=== PATIENT | female | born 1975 | race Caucasian/White ===

== ENCOUNTER → 2016-06-22 | Outpatient (CLI) | payer BC ==
[~2016-06-22] VITALS: Ht 160 cm; Wt 81.3 kg
[~2016-06-22] MED LIST: CLBCRM30 EXT; CYPR4TAB31 PO; IBUP-1050 PO; MTR600X PO; ONDA8TAB6 PO; OXYC-57 PO; RANI300T2 PO; SUMA100T16 PO; SUMATRIPTAN; TRMO2580 TOP
[2016-06-22 13:58] VITALS: Ht 160 cm; Wt 81.3 kg
--- NOTE | 2016-06-22 14:40 | PAT Medication Instructions ---
Service Date Jun 22, 2016. Current Home Medication List Clobetasol Propionate (Clobetasol Propionate Cream 0.05%), 1 APPLN EXT BID PRN for ECZEMA Cyproheptadine Hcl (Periactin), 4 MG PO TID Ibuprofen (Advil), 400 MG PO PRN PRN for Pain Ranitidine Hcl (Zantac), 300 MG PO HS PRN for ACID REFLUX Sumatriptan Succinate (Imitrex), 100 MG PO PRN PRN for HEADACHE Triamcinolone Acetonide (Topic (Triamcinolone Acet 0.025%), 1 APPLN TOP BID PRN for EXCZEMA [Sumatriptan [place] ] Medication Instructions For Your Scheduled Surgery - Hold the following medications 24 hours prior to surgery: Triamcinolone Acetonide (Topic (Triamcinolone Acet 0.025%), 1 APPLN TOP BID PRN for ECZEMA Clobetasol Propionate (Clobetasol Propionate Cream 0.05%), 1 APPLN EXT BID PRN for ECZEMA - Hold the following medications the morning of surgery: Ibuprofen (Advil), 400 MG PO PRN PRN for Pain Cyproheptadine Hcl (Periactin), 4 MG PO TID - Take the following medications the morning of surgery with a sip of water OTHERWISE NOTHING TO EAT OR DRINK AFTER MIDNIGHT: Sumatriptan Succinate (Imitrex), 100 MG PO PRN PRN for HEADACHE (if needed) [Sumatriptan [place] ] (if needed) - Take the following medications as scheduled the night before surgery: Ranitidine Hcl (Zantac), 300 MG PO HS PRN for ACID REFLUX Sumatriptan Succinate (Imitrex), 100 MG PO PRN PRN for HEADACHE [Sumatriptan [place] ] Cyproheptadine Hcl (Periactin), 4 MG PO TID If you have any questions please call us at [phone] or [phone] or [phone]
[2016-06-22 14:50] LABS: HEMATOCRIT 40.2 % (37-47); MEAN CELL VOLUME 85.2 fL (80-100); MEAN CORPUSCULAR HEMOGLOBIN 29.9 pg (25-34); MEAN CORPUSCULAR HGB CONC 35.1 g/dl (32-36); MEAN PLATELET VOLUME 9.8 fL (7.4-10.4); PLATELET COUNT 285 K/uL (130-400); RED BLOOD COUNT 4.72 M/uL (4.2-5.4); WHITE BLOOD COUNT 10.07 K/uL (4.8-10.8)
[2016-06-22 15:02] LABS: BUN/CREATININE RATIO 10.8 (10-20); CREATININE 1.4 mg/dl (0.60-1.20); POTASSIUM 3.8 mmol/L (3.5-5.1)
[2016-06-22 15:27] LABS: BASO % 0.4 %; BASO ABS # 0.04 K/uL (0-0.2); COMPLETE YES; EOS % 1.2 %; IG% 0.3 %; LYMPH % 22.4 %; LYMPH ABS # 2.26 K/uL (1.2-3.4); MONO % 6.5 %; NEUT % 69.2 %
== END | disposition home or self-care (01) ==
LOC: C.LAB 08:00 → EDSTATUS 07-03 11:51
PROVIDERS: ATTEND Obstetrics & Gynecology
DX: Z01.818 Encounter for other preprocedural examination (principal)

== ENCOUNTER → 2016-10-21 | Outpatient (CLI) | payer BC ==
[2016-10-21 14:24] LABS: CHOLESTEROL/HDL RATIO 5.2
== END | disposition home or self-care (01) ==
LOC: C.LAB 12:40
PROVIDERS: ATTEND Physician Assistant
DX: E78.5 Hyperlipidemia, unspecified (principal); Z82.49 Family history of ischemic heart disease and other diseases of the circulatory system

== ENCOUNTER 2016-10-30 05:21 | Inpatient (IN) | payer BC ==
[2016-10-21 12:44] VITALS: BMI 31.0
--- NOTE | 2016-10-21 13:09 | PAT Medication Instructions ---
Service Date Oct 21, 2016. Current Home Medication List Clobetasol Propionate (Clobetasol Propionate Cream 0.05%), 1 APPLN EXT BID PRN for ECZEMA Cyproheptadine Hcl (Periactin), 4 MG PO TID Ibuprofen (Advil), 400 MG PO PRN PRN for Pain Ondansetron Hcl (Zofran), 8 MG PO PRN PRN for Nausea Ranitidine Hcl (Zantac), 300 MG PO HS PRN for ACID REFLUX Sumatriptan Succinate (Imitrex), 100 MG PO PRN PRN for HEADACHE Triamcinolone Acetonide (Topic (Triamcinolone Acet 0.025%), 1 APPLN TOP BID PRN for EXCZEMA [Sumatriptan [place] ] Medication Instructions For Your Scheduled Surgery - Check with surgeon for instructions: Ibuprofen (Advil), 400 MG PO PRN PRN for Pain - Hold the following medications 24 hours prior to surgery: Triamcinolone Acetonide (Topic (Triamcinolone Acet 0.025%), 1 APPLN TOP BID PRN for EXCZEMA Clobetasol Propionate (Clobetasol Propionate Cream 0.05%), 1 APPLN EXT BID PRN for ECZEMA - Hold the following medications the morning of surgery: Ranitidine Hcl (Zantac), 300 MG PO HS PRN for ACID REFLUX Cyproheptadine Hcl (Periactin), 4 MG PO TID - Take the following medications the morning of surgery with a sip of water: Sumatriptan Succinate (Imitrex), 100 MG PO PRN PRN for HEADACHE (if needed) [Sumatriptan [place] ] Nostril Ondansetron Hcl (Zofran), 8 MG PO PRN PRN for Nausea (if needed) - Take the following medications as scheduled the night before surgery: Sumatriptan Succinate (Imitrex), 100 MG PO PRN PRN for HEADACHE (if needed) [Sumatriptan [place] ] Nostril Ondansetron Hcl (Zofran), 8 MG PO PRN PRN for Nausea (if needed) Cyproheptadine Hcl (Periactin), 4 MG PO TID If you have any questions please call us at [phone] or [phone] or [phone]
[2016-10-21 13:52] LABS: BASO % 0.4 %; BASO ABS # 0.03 K/uL (0-0.2); COMPLETE YES; IG% 0.3 %; LYMPH ABS # 2.19 K/uL (1.2-3.4); MEAN CELL VOLUME 86.8 fL (80-100); MEAN CORPUSCULAR HEMOGLOBIN 30.4 pg (25-34); MONO % 8.6 %; NEUT % 59.7 %; PLATELET COUNT 240 K/uL (130-400); RED BLOOD COUNT 4.38 M/uL (4.2-5.4)
[2016-10-21 14:07] LABS: BUN/CREATININE RATIO 12.2 (10-20); CALCIUM 9.4 mg/dl (8.5-10.1); POTASSIUM 4.3 mmol/L (3.5-5.1)
[~2016-10-30] VITALS: Ht 160 cm; Wt 81.3 kg
[2016-10-30] VITALS (11 sets, daily range): BP systolic 107–128; BP diastolic 69–77; PULSE 71–103; TEMP 36.3–36.9; O2SAT 95–98; Ht 160 cm; Wt 81.3 kg
[~2016-10-30 05:21] MED LIST changes: -MTR600X PO; -OXYC-57 PO
[2016-10-30] MEDS ORDERED: LACTATED RINGER'S 1000ML 1,000 ML IV SCH ×3 (06:00→11:30)
[2016-10-30] MEDS ORDERED: CEFAZOLIN 2000 MG/60 ML D5W 50 ML IV SCH (06:00)
[2016-10-30] MEDS ORDERED: NEOSTIGMINE METHYLSULFATE 5 MG/5 ML SYR ONE (06:30)
[2016-10-30] MEDS ORDERED: MIDAZOLAM HCL 1 MG/ML 2ML VIAL ONE (06:30)
[2016-10-30] MEDS ORDERED: DEXAMETHASONE SOD INJ 4 MG/ML VIAL ONE (06:30)
[2016-10-30] MEDS ORDERED: LIDOCAINE HCL 2% 2 ML VIAL (20MG/ML) ONE (06:30)
[2016-10-30] MEDS ORDERED: PROPOFOL IV EMULSION 10 MG/ML 20 ML VIAL IV ONE (06:30)
[2016-10-30] MEDS ORDERED: FENTANYL CITRATE INJ 50 MCG/1 ML 2 ML VIAL ONE ×4 (06:30→09:41)
[2016-10-30] MEDS ORDERED: ROCURONIUM BROMIDE 10 MG/ML 5 ML VIAL ONE (06:30)
[2016-10-30] MEDS ORDERED: GLYCOPYRROLATE INJ 0.2 MG/ML VIAL ONE ×2 (06:30→07:50)
[2016-10-30] MEDS ORDERED: ONDANSETRON INJ 2 MG/ML 2 ML VIAL ONE (06:30)
[2016-10-30 06:38] LABS: PREG INTERNAL NEGATIVE QC NEG CLEAR BACKGROUND; PREG INTERNAL POSITIVE QC POS CONTROL LINE
--- NOTE | 2016-10-30 06:39 | History & Physical Bridge Note ---
H&P Re-Evaluation Bridge Note: I have examined the patient, reviewed the History & Physical and in the interval since the performance of the History & Physical I have noted the following changes of clinical significance: No changes noted
[2016-10-30] MEDS ORDERED: METHYLENE BLUE 0.5% 10 ML VIAL ONE (06:40)
[2016-10-30] MEDS ORDERED: BUPIVACAINE 0.5 % 5 MG/1 ML MPF 30ML VIAL ONE (06:41)
[2016-10-30] MEDS ORDERED: MINERAL OIL LIGHT 10 ML BTL ONE (06:43)
[2016-10-30] MEDS ORDERED: ATROPINE SULFATE 0.1 MG/ML 5ML SYR IV PRN (07:00)
[2016-10-30] MEDS ORDERED: FENTANYL CITRATE INJ 50 MCG/1 ML 2 ML VIAL IV PRN (07:00)
[2016-10-30] MEDS ORDERED: EpHEDrine SULFATE INJ 50 MG/ML AMP IV PRN (07:00)
[2016-10-30] MEDS ORDERED: ONDANSETRON INJ 2 MG/ML 2 ML VIAL IV PRN ×2 (07:00→09:15)
--- NOTE | 2016-10-30 09:12 | [facility] Post Operative Brief Note ---
Immediate Operative Summary Operative Date Oct 30, 2016. Pre-Operative Diagnosis Pelvic pain, hx endometrial ablation Post-Operative Diagnosis same as pre-operative, bilateral hydrosalpinx Procedure(s) Performed Total Laparoscopic Hysterectomy, Bilateral Salpingectomy, Cystoscopy Surgeon Dr. Serge Leon Medicaid Analyst Surgeon(s) Dr. Mildred Salvador Estimated Blood Loss 25ml Findings Upon laparoscopic exam uterus was small at midline and freely mobile. Bilateral ovaries were grossly normal. Bilateral fallopian tubes were noted to be dilated and fluid filled therefore the decision was made to perform a bilateral salpingectomy along with her hysterectomy. The cervix, uterus and bilateral fallopian tubes were successfully removed laparoscopically. Once the specimens were removed from the vagina anesthesia was instructed to push methylene blue. The vaginal cuff was then closed with excellent hemostasis noted. A cystoscopy was performed noting no injury or suture within the bladder wall. Bilateral ureteral openings spilled blue tinged urine indicating that bilateral ureters were intact. The patient tolerated the procedure well and was sent to recovery with stable vital signs. Fluids (cc crystalloids) 1100 Specimens A: Uterus, Cervix, Left Fallopian tube, Right Fallopian tube Drains Garcia to [place] Anesthesia General Complication(s) None Disposition Recovery Room / PACU
[2016-10-30] MEDS ORDERED: SENNA 8.6 MG TAB PO PRN (09:15)
[2016-10-30] MEDS ORDERED: SUMATRIPTAN SUCC TAB 100 MG TAB PO PRN (09:15)
[2016-10-30] MEDS ORDERED: MAGNESIUM HYDROXIDE SUSP 30 ML UDC PO PRN (09:15)
[2016-10-30] MEDS ORDERED: OXYCODONE/ACETAMINOPHEN 5-325 TAB PO PRN (09:15)
[2016-10-30] MEDS ORDERED: BISACODYL 10 MG SUPP PR PRN (09:15)
[2016-10-30] MEDS ORDERED: KETOROLAC TROMETHAMINE 30 MG/ML VIAL IV. PRN (09:15)
[2016-10-30] MEDS ORDERED: RANITIDINE HCL 150 MG TAB PO PRN (09:15)
--- NOTE | 2016-10-30 09:43 | OPERATIVE REPORT ---
DATE OF OPERATION: 10/30/2016 PREOPERATIVE DIAGNOSES: 1. Chronic pelvic pain. 2. History of endometrial ablation. POSTOPERATIVE DIAGNOSES: 1. Chronic pelvic pain. 2. History of endometrial ablation. 3. Bilateral hydrosalpinx. OPERATIVE PROCEDURE: Total laparoscopic hysterectomy with bilateral salpingectomy and cystoscopy. SURGEON: Dr. Serge Leon. INSPECTOR BALL POINTS: Dr. Mildred Salvador. ANESTHESIA: General. ESTIMATED BLOOD LOSS: 25 mL. IV FLUIDS: 1100 mL crystalloids. URINE OUTPUT: 600 mL clear yellow urine. SPECIMENS: Uterus, cervix and left and right fallopian tubes sent to pathology. DRAINS: Garcia to gravity. COMPLICATIONS: None. DISPOSITION: Recovery room. OPERATIVE FINDINGS: Upon laparoscopic exam, the patient's uterus was small at midline and freely mobile. Bilateral ovaries were grossly normal. Bilateral fallopian tubes were noted to be dilated and fluid filled. Therefore, the decision was made to perform a bilateral salpingectomy along with the hysterectomy. Cervix, uterus and bilateral fallopian tubes were successfully removed laparoscopically. Once the specimens were removed from the vagina, anesthesia was instructed to push methylene blue. The vaginal cuff was then closed laparoscopically with excellent hemostasis noted. A cystoscopy was then performed noting no injury or suture within the bladder wall. Bilateral ureteral openings expelled blue-tinged urine, indicating that bilateral ureters were intact. The patient tolerated the procedure well and was sent to recovery with stable vital signs. OPERATIVE PROCEDURE IN DETAIL: The patient was taken to the operating room, where general anesthesia was administered. Once anesthesia was found to be adequate, the patient was placed in a dorsal lithotomy position and was prepped and draped in a manner appropriate for the procedure. A weighted speculum was then placed into the vagina. The anterior lip of the cervix was grasped with a single tooth tenaculum. A medium VCare uterine manipulator was placed within the uterus in an anteverted fashion and was suture ligated to the cervix at 12 o'clock and 6 o'clock position with 0 Vicryl suture. Once the VCare was in place, the weighted speculum and single tooth tenaculum were removed. A sterile Garcia catheter was then placed within the bladder and remained indwelling throughout the entire procedure. The patient was then ready for the laparoscopic portion of the procedure. Attention was directed towards the umbilicus, where 0.5% Marcaine was injected subumbilically. An 11-mm skin incision was made below the umbilicus in a horizontal fashion. A Veress needle was then placed within the abdomen. Normal saline was injected with no fecal content aspirated. Pneumoperitoneum was then created. The Veress needle was then removed and an 11-mm trocar was then placed within the abdomen under direct laparoscopic visualization. The pneumoperitoneum was maintained. A second 11-mm skin incision was made on the left side of the abdomen and a second 11-mm trocar was then placed within the abdomen under direct laparoscopic visualization. A third 11-mm skin incision was made on the right side of the abdomen and a third 11-mm trocar was placed within the abdomen under direct laparoscopic visualization. The patient was then placed in steep Trendelenburg position and the bowel contents were displaced superiorly away from the pelvis. A thorough examination of the abdomen and pelvis was then performed. Attention was then directed towards the right adnexa, where the right round ligament was cauterized and transected utilizing the LigaSure. The uteroovarian ligament was then cauterized and transected, continued inferiorly through the broad ligament. The anterior leaf of the broad ligament was and a bladder flap was created on the right side of the uterus and the bladder flap was pushed away from the lower uterine segment. The same was then done on the left adnexa. The left round ligament was cauterized and transected along with the left uteroovarian ligament cauterizing and transecting as we continued inferiorly through the broad ligament. The bladder flap was created on the left side of the lower uterine segment. The bladder flap was pushed away from the lower uterus. Bilateral ascending uterine arteries were cauterized and transected, continued inferiorly through the cardinal-uterosacral complex, cauterizing and transecting as we continued inferiorly. Once we were at the level of the VCare, the cervix and uterus were amputated from the vagina circumferentially with the LigaSure. Once the specimen was successfully removed, the uterus and cervix were removed from the vagina. A sterile glove was then placed within the vagina to maintain a pneumoperitoneum. Attention was directed towards the right fallopian tube, which was noted to be dilated. Therefore, the fallopian tube was grasped and cauterized and transected away from the pelvic side wall. The specimen was then removed through the trocar and sent to pathology. Attention was then directed towards the left fallopian tube, which was likewise dilated and was successfully removed laparoscopically and removed through the trocar. Excellent hemostasis was noted bilaterally. Anesthesia was then instructed to push methylene blue. The vaginal cuff was then closed with 0 Polysorb with the EndoStitch in a continuous locking fashion. Excellent hemostasis was noted. The peritoneum was reapproximated with 0 Polysorb suture again with the EndoStitch in a continuous running fashion. Excellent hemostasis was noted throughout the entire pelvis. No other intra-abdominal or pelvic pathology was noted. The pneumoperitoneum was then released. All instruments were removed from the abdomen. Attention was directed towards the perineum. The Garcia catheter was removed along with a sterile glove from the vagina. A cystoscope was introduced into the bladder and a thorough exam was performed, noting no injury to the bladder wall or suture within the bladder. Bilateral ureteral openings expelled blue tinged urine indicating bilateral ureters were intact. At this point, the procedure was found to be complete. The cystoscope was removed and a second sterile Garcia catheter was placed within the bladder. Attention was then directed towards the abdomen. The fascias of all 3 incisions were then closed with 0 Vicryl suture in a [id number] interrupted fashion. All 3 skin incisions were then closed with 4-0 Monocryl in a subcuticular fashion. Excellent hemostasis was noted. The patient tolerated the procedure well and was sent to recovery with stable vital signs. All sponge and instrument counts were found to be correct x2. I attest to the content of the Intraoperative Record and any orders documented therein. Any exception s are noted below.
--- NOTE | 2016-10-30 10:46 | Anesthesiology Progress Note ---
Anesthesia Post Op Note Date & Time Oct 30, 2016 at 10:46 Vital Signs Pain Intensity: 3 Vital Signs Past 12 Hours Date Time Temp Pulse Resp B/P (MAP) Pulse Ox O2 Delivery O2 Flow Rate FiO2 10/30/16 10:05 36.0 86 14 126/81 97 Nasal Cannula 2 10/30/16 09:55 67 14 111/75 97 Nasal Cannula 2 10/30/16 09:45 36.0 73 14 112/75 97 Nasal Cannula 2 10/30/16 09:35 69 14 118/79 96 Nasal Cannula 2 10/30/16 09:25 70 14 116/78 93 Oxymask 10 10/30/16 09:18 36.2 79 14 123/83 95 Oxymask 10 10/30/16 05:49 36.7 83 18 128/74 (92) 98 Room Air Notes Mental Status: alert / awake / arousable, participated in evaluation Pt Amnestic to Procedure: Yes Nausea / Vomiting: adequately controlled Pain: adequately controlled Airway Patency, RR, SpO2: stable & adequate BP & HR: stable & adequate Hydration State: stable & adequate Anesthetic Complications: no major complications apparent
[2016-10-30] MEDS ORDERED: KETOROLAC TROMETHAMINE 30 MG/ML VIAL ONE (11:18)
[2016-10-30] MEDS: CYPROHEPTADINE HCL 4 MG TAB PO SCH ×2 (14:00→20:28)
[2016-10-30] MEDS: IBUPROFEN 600 MG TAB PO PRN (20:30)
[2016-10-31 03:50] VITALS: BP 106/68; PULSE 81; TEMP 36.7; O2SAT 96
[2016-10-31 06:41] LABS: COMPLETE YES; EOS % 0.2 %; HEMATOCRIT 34.5 % (37-47); IG% 0.3 %; LYMPH % 15.2 %; LYMPH ABS # 1.66 K/uL (1.2-3.4); MEAN CELL VOLUME 87.3 fL (80-100); MEAN CORPUSCULAR HEMOGLOBIN 29.1 pg (25-34); MEAN CORPUSCULAR HGB CONC 33.3 g/dl (32-36); MEAN PLATELET VOLUME 9.6 fL (7.4-10.4); MONO % 6.9 %; NEUT % 77.4 %; PLATELET COUNT 231 K/uL (130-400); RED BLOOD COUNT 3.95 M/uL (4.2-5.4); WHITE BLOOD COUNT 10.93 K/uL (4.8-10.8)
[2016-10-31 07:14] LABS: BUN/CREATININE RATIO 12.4 (10-20); CALCIUM 8.4 mg/dl (8.5-10.1); CREATININE 0.9 mg/dl (0.60-1.20); POTASSIUM 3.9 mmol/L (3.5-5.1)
[2016-10-31 07:15] VITALS: BP 105/74; PULSE 83; TEMP 36.7; O2SAT 97
[2016-10-31] MEDS: CYPROHEPTADINE HCL 4 MG TAB PO SCH (07:26)
[2016-10-31] MEDS: IBUPROFEN 600 MG TAB PO PRN ×2 (07:28→11:35)
[2016-10-31] MEDS ORDERED: MTR600X PO (11:11)
--- NOTE | 2016-10-31 11:14 | Discharge Instructions ---
Discharge Instructions Date of Service Oct 31, 2016. Admission Reason for Admission: Chronic Pelvic Pain, Hx Of Ablation Discharge Discharge Diagnosis / Problem: s/p Total Laparosocpic hytserectomy with bilateral salpingectomy Discharge Goals Goal(s): Routine recovery after surgery Activity Recommendations Activity Limitations: per Instructions/Follow-up section . Instructions / Follow-Up Instructions / Follow-Up POST OPERATIVE: BOWEL FUNCTION/MEDICATIONS: 1. Constipation pain and discomfort are the most common complaints 5-7 days after surgery. Points 2-6 address the things that can help. 2. Chewing gum can help stimulate the gut and help improve digestion and motility. 3. Milk of Magnesia 1-2 times per day until return of bowel function. 4. Colace is a stool softener that helps. Taking this 2-3 times per day until bowel function returns to normal is highly recommended. 5. Dulcolax is a laxative that may be used if several days have passed without a bowel movement. Alternatively Miralax may be used daily instead. 6. Drink plenty of fluids as this will also reduce constipation. 7. Narcotic pain medications will be prescribed by your physician. They are safe to use and we encourage you to use them. If you are not allergic, ibuprofen will also be prescribed. Many patients will be able to transition off of the narcotic medications to ibuprofen by postoperative day 3. ACTIVITY RECOMMENDATIONS: 1. Get plenty of rest and listen to your body. If you are tired, take a nap. 2. You may shower, but do not take a tub bath until you see your doctor at the 2 week post operative visit. 3. Absolutely NO intercourse and nothing in the vagina until you are examined by your doctor at the 6 week visit. At that visit it will be determined when such activities can be resumed. This can range from 6-12 weeks after your surgery depending on healing time. 4. The main physical activity in the first week should be walking. By the second week you can slowly increase activity. There are no limits on walking up and down stairs. 5. Do not lift more than 5-10 lbs for 4 weeks. Remember the "one-handed rule", i.e. if you can lift something with only one hand it's likely okay. 6. Minimize lard renderer like vacuuming and exercising for 4 weeks. "Overdoing it" can lead to incisions not healing, pain and vaginal bleeding , so again, listen to your body. 7. Driving can be resumed when you feel able. Do not drive within 24 hours of taking a narcotic medication. EXPECTATIONS: 1. Vaginal spotting, bleeding and discharge are common after surgery. There may even be an odor to the discharge which is often related to sutures used in the vagina. If you experience heavy vaginal bleeding, call the office number day or night [phone]. 2. Bladder discomfort is common after surgery from the catheter. This usually resolves in 1-2 weeks. 3. By the end of the 3rd or 4th week you should be feeling much better. It may take up to 6 weeks for your energy levels to return to normal. 4. Narcotic medications have side effects such as: dizziness, headache, nausea and/or vomiting. If you suspect your pain medication is causing problems, call our office and we may be able to prescribe an alternate medication. 5. The skin incisions are often covered with a liquid bandage. This will gradually peel off over time. CALL THE OFFICE IF YOU HAVE ANY OF THE FOLLOWIN. Temperature of 101 degrees or higher. 2. Severe abdominal or pelvic pain not relieved by pain medication. 3. Persistent nausea or vomiting. 4. Increased pain with urination or difficulty urinating. 5. Bright red bleeding that soaks more than 1 pad per hour. CONTACT PHONE NUMBERS: Main Office: [phone] FOLLOW-UP: Post-Operative Appointments: * Individual instructions will have been given about the timing of your first examination, but this is usually at the end of the second week home. * You will need to call the office at [phone] soon after discharge to make the appointment for your post-op check-up if it has not already been scheduled. * Additional information regarding activity, sexual intercourse and when to return to work will be given at this appointment. WE WISH YOU A SPEEDY RECOVERY! Current Hospital Diet Patient's current hospital diet: Regular Diet Discharge Diet Recommended Diet: Regular Diet Procedures Procedures Performed: Total Laparoscopic Hysterectomy, Bilateral Salpingectomy, Cystoscopy Pending Studies Studies pending at discharge: no Laboratory Results Lipid Panel Test 10/21/16 13:14 Range/Units Triglycerides Level 230 H 0-150 mg/dl Cholesterol Level 186 0-200 mg/dl HDL Cholesterol 36 mg/dl Cholesterol/HDL Ratio 5.2 LDL Cholesterol, Calculated 104 mg/dl Medical Emergencies . Who to Call and When: Medical Emergencies: If at any time you feel your situation is an emergency, please call 911 immediately. . Non-Emergent Contact Non-Emergency issues call your: Primary Care Provider, [employer] . . "Provider Documentation" section prepared by Serge Leon. . VTE Core Measure Inpt VTE Proph given/why not?: Treatment not indicated
--- NOTE | 2016-10-31 11:20 | Surgery Progress Note ---
Surgery Progress Note Date of Service Oct 31, 2016. Subjective Post OP Day: 1 Objective Vital Signs: Date Time Temp Pulse Resp B/P (MAP) Pulse Ox O2 Delivery O2 Flow Rate FiO2 10/31/16 07:15 36.7 83 18 105/74 (84) 97 Room Air 10/31/16 07:15 97 Room Air 10/31/16 03:50 36.7 81 16 106/68 (81) 96 Room Air 10/30/16 23:30 36.9 71 18 107/72 (84) 95 Room Air 10/30/16 23:30 95 Room Air 10/30/16 20:15 36.9 94 16 108/70 (83) 98 Room Air 10/30/16 16:25 Room Air 10/30/16 16:25 36.5 103 16 114/77 (89) 98 Room Air 10/30/16 13:50 96 Room Air 10/30/16 13:25 97 2.0 10/30/16 13:20 36.4 88 18 112/74 (87) 97 Nasal Cannula 2.0 10/30/16 12:20 88 18 111/74 (86) 98 Nasal Cannula 2.0 10/30/16 11:20 80 18 116/72 (87) 98 Nasal Cannula 2.0 General Appearance: WD/WN Respiratory/Chest: chest non-tender, lungs clear Cardiovascular: regular rate, rhythm Abdomen: normal bowel sounds, non tender Incision(s): clean, dry, intact Extremities: normal range of motion, non-tender, no calf tenderness Laboratory Results: Results Past 24 Hours Test 10/30/16 19:34 10/31/16 06:23 Range/Units Hemoglobin 11.9 11.5 12.0-16.0 g/dL Hematocrit 35.0 34.5 37-47 % White Blood Count 10.93 4.8-10.8 K/uL Red Blood Count 3.95 4.2-5.4 M/uL Mean Corpuscular Volume 87.3 80-100 fL Mean Corpuscular Hemoglobin 29.1 25-34 pg Mean Corpuscular Hemoglobin Concent 33.3 32-36 g/dl Platelet Count 231 130-400 K/uL Mean Platelet Volume 9.6 7.4-10.4 fL Neutrophils (%) (Auto) 77.4 % Lymphocytes (%) (Auto) 15.2 % Monocytes (%) (Auto) 6.9 % Eosinophils (%) (Auto) 0.2 % Basophils (%) (Auto) 0.0 % Neutrophils # (Auto) 8.47 1.4-6.5 K/uL Lymphocytes # (Auto) 1.66 1.2-3.4 K/uL Monocytes # (Auto) 0.75 0.11-0.59 K/uL Eosinophils # (Auto) 0.02 0-0.5 K/uL Basophils # (Auto) 0.00 0-0.2 K/uL RDW Standard Deviation 40.9 36.4-46.3 fL RDW Coefficient of Variation 12.6 11.5-14.5 % Immature Granulocyte % (Auto) 0.3 % Immature Granulocyte # (Auto) 0.03 0.00-0.02 K/uL Sodium Level 140 136-145 mmol/L Potassium Level 3.9 3.5-5.1 mmol/L Chloride Level 107 98-107 mmol/L Carbon Dioxide Level 27 21-32 mmol/L Anion Gap 6.0 3-11 mmol/L Blood Urea Nitrogen 11 7-18 mg/dl Creatinine 0.90 0.60-1.20 mg/dl Est Creatinine Clear Calc Drug Dose 85.6 ml/min Estimated GFR () 94.0 Estimated GFR (Non- 81.1 BUN/Creatinine Ratio 12.4 10-20 Random Glucose 107 70-99 mg/dl Calcium Level 8.4 8.5-10.1 mg/dl Assessment & Plan POD # 1 s/p TLH, bilateral salpingectomy, cystoscopy -Doing well, pain well controlled with motrin only -Incisions c/d/i. -D/C home today -F/U in 2 weeks.
[2016-10-31] MEDS ORDERED: OXYC-57 PO (11:34)
[2016-10-31 11:42] VITALS: BP 105/74; PULSE 83; TEMP 36.7; O2SAT 97
--- NOTE | 2016-10-31 12:00 | Discharge Summary ---
Discharge Summary Date of Service Oct 31, 2016. Discharge Summary Admission Date: Oct 30, 2016 at 05:30 Discharge Date: Oct 31, 2016 Discharge Disposition: Home Principal Diagnosis: Chronic pelvic pain, Hx endometrial ablation, Bilateral hydrosalpinx Procedures: Total Laparoscopic Hysterectomy, Bilateral Salpingectomy, Cystoscopy Medication Reconciliation New Medications: Ibuprofen (Ibuprofen) 600 Mg Tab 600 MG PO Q4H PRN for Pain, LEIVA, Cramping, Edema, #30 TAB Oxycodone/Acetaminophen 5MG/325MG (Percocet 5MG/325MG) Tab 1-2 TAB PO Q4H PRN for LEIVA, Cramping, edema, #20 TAB PAIN Continued Medications: Clobetasol Propionate (Clobetasol Propionate Cream 0.05%) 90 Appln/30 Gm Cr 1 APPLN EXT BID PRN for ECZEMA, TUBE Cyproheptadine Hcl (Periactin) 4 Mg Tab 4 MG PO TID, TAB USES ONLY DURING WINTER MONTHS OR COLD TEMPS Ondansetron Hcl (Zofran) 8 Mg Tab 8 MG PO PRN PRN for Nausea, TAB Ranitidine Hcl (Zantac) 300 Mg Tab 300 MG PO HS PRN for ACID REFLUX , TAB Sumatriptan Succinate (Imitrex) 100 Mg Tab 100 MG PO PRN PRN for HEADACHE , TAB TO USE AT ONSET OF HEADACHE AND MAY REPEAT IN 2 HOURS PER PT Triamcinolone Acetonide (Topic (Triamcinolone Acet 0.025%) 0.025 % Oin 1 APPLN TOP BID PRN for EXCZEMA, GM 1 Refill PATIENT REPORTS HER DOSE IS 0.5% [Sumatriptan [place] ] () 20 MG - 1 SPRAY IN NOSTRIL AT ONSET OF HEADACHE - MAY REPEAT IF NECESSARY - NO MORE THAN 2 SPRAYS IN 24 HOURS Discontinued Medications: Ibuprofen (Advil) 200 Mg Tab 400 MG PO PRN PRN for Pain, TAB Admission Information HPI (per Admitting provider): Patient is a 40 y/o female has had ongoing chronic pelvic pain and has had an endometrial ablation secondary to heavy bleeding in 2013. Pelvic US was essentially normal. Her options were discussed including D&C, observation and hysterectomy. She has decided she would like to proceed with surgical intervention via [facility]. Risks, benefits and alternatives were discussed. Physical Exam (per Admitting): General Appearance: WD/WN, no apparent distress Respiratory/Chest: chest non-tender, lungs clear Cardiovascular: regular rate, rhythm Abdomen/GI: normal bowel sounds, non tender, soft Neurologic/Psych: alert, oriented x 3 Skin: normal color, warm/dry, no rash Hospital Course Patient underwent a total laparoscopic hysterectomy with bilateral salpingectomy and cystoscopy on the day of admission. Her surgery went well with no intraoperative complications. She was sent to recovery with stable vital signs. Her postop course was uneventful. Her kirkpatrick catheter was removed on the evening of her surgery. Her diet and activity were advanced as tolerated. On POD # 1 she was ambulating without difficulty, pain was well controlled with motrin only. She was tolerating a regular diet, +flatus, -BM. She was discharged on POD # 1 with discharge instructions. Total time spent on discharge = 30 mins This includes examination of the patient, discharge planning, medication reconciliation, and communication with other providers. Discharge Instructions POST OPERATIVE: BOWEL FUNCTION/MEDICATIONS: 1. Constipation pain and discomfort are the most common complaints 5-7 days after surgery. Points 2-6 address the things that can help. 2. Chewing gum can help stimulate the gut and help improve digestion and motility. 3. Milk of Magnesia 1-2 times per day until return of bowel function. 4. Colace is a stool softener that helps. Taking this 2-3 times per day until bowel function returns to normal is highly recommended. 5. Dulcolax is a laxative that may be used if several days have passed without a bowel movement. Alternatively Miralax may be used daily instead. 6. Drink plenty of fluids as this will also reduce constipation. 7. Narcotic pain medications will be prescribed by your physician. They are safe to use and we encourage you to use them. If you are not allergic, ibuprofen will also be prescribed. Many patients will be able to transition off of the narcotic medications to ibuprofen by postoperative day 3. ACTIVITY RECOMMENDATIONS: 1. Get plenty of rest and listen to your body. If you are tired, take a nap. 2. You may shower, but do not take a tub bath until you see your doctor at the 2 week post operative visit. 3. Absolutely NO intercourse and nothing in the vagina until you are examined by your doctor at the 6 week visit. At that visit it will be determined when such activities can be resumed. This can range from 6-12 weeks after your surgery depending on healing time. 4. The main physical activity in the first week should be walking. By the second week you can slowly increase activity. There are no limits on walking up and down stairs. 5. Do not lift more than 5-10 lbs for 4 weeks. Remember the "one-handed rule", i.e. if you can lift something with only one hand it's likely okay. 6. Minimize assisted living coordinator like vacuuming and exercising for 4 weeks. "Overdoing it" can lead to incisions not healing, pain and vaginal bleeding , so again, listen to your body. 7. Driving can be resumed when you feel able. Do not drive within 24 hours of taking a narcotic medication. EXPECTATIONS: 1. Vaginal spotting, bleeding and discharge are common after surgery. There may even be an odor to the discharge which is often related to sutures used in the vagina. If you experience heavy vaginal bleeding, call the office number day or night [phone]. 2. Bladder discomfort is common after surgery from the catheter. This usually resolves in 1-2 weeks. 3. By the end of the 3rd or 4th week you should be feeling much better. It may take up to 6 weeks for your energy levels to return to normal. 4. Narcotic medications have side effects such as: dizziness, headache, nausea and/or vomiting. If you suspect your pain medication is causing problems, call our office and we may be able to prescribe an alternate medication. 5. The skin incisions are often covered with a liquid bandage. This will gradually peel off over time. CALL THE OFFICE IF YOU HAVE ANY OF THE FOLLOWIN. Temperature of 101 degrees or higher. 2. Severe abdominal or pelvic pain not relieved by pain medication. 3. Persistent nausea or vomiting. 4. Increased pain with urination or difficulty urinating. 5. Bright red bleeding that soaks more than 1 pad per hour. CONTACT PHONE NUMBERS: Main Office: [phone] FOLLOW-UP: Post-Operative Appointments: * Individual instructions will have been given about the timing of your first examination, but this is usually at the end of the second week home. * You will need to call the office at [phone] soon after discharge to make the appointment for your post-op check-up if it has not already been scheduled. * Additional information regarding activity, sexual intercourse and when to return to work will be given at this appointment. WE WISH YOU A SPEEDY RECOVERY!
== END 2016-10-31 12:30 | disposition home or self-care (01) | DRG 983 ==
LOC: C.ACU 05:21 → C.MS4N 05:30
PROVIDERS: ADMIT Obstetrics & Gynecology; ATTEND Obstetrics & Gynecology
PROC: 0UT7FZZ Resection of Bilateral Fallopian Tubes, Via Natural or Artificial Opening With Percutaneous Endoscopic Assistance (ICD-10-PCS; principal; 2016-10-30 07:00)
PROC: 0UTC7ZZ Resection of Cervix, Via Natural or Artificial Opening (ICD-10-PCS; principal; 2016-10-30 07:00)
PROC: 0UT9FZZ Resection of Uterus, Via Natural or Artificial Opening With Percutaneous Endoscopic Assistance (ICD-10-PCS; principal; 2016-10-30 07:00)
DX: R10.2 Pelvic and perineal pain (principal); N70.11 Chronic salpingitis; Z98.890 Other specified postprocedural states; G89.29 Other chronic pain; Z79.899 Other long term (current) drug therapy